=== PATIENT | female | born 1940 | race Caucasian/White ===

== ENCOUNTER 2021-02-07 12:41 | Observation (INO) ==
[2021-02-07] MEDS ORDERED: ACETAMINOPHEN 325 MG TABLET PO PRN (12:54)
[2021-02-07] MEDS ORDERED: DEXTROSE 50% 25 GM/50 ML VIAL IV PRN (12:54)
[2021-02-07] MEDS ORDERED: ONDANSETRON 4 MG/2 ML VIAL IV PRN (12:54)
[2021-02-07] MEDS ORDERED: GLUCAGON 1 MG VIAL IM PRN (12:54)
[2021-02-07] MEDS ORDERED: ENOXAPARIN 40 MG/0.4 ML SYRINGE SUBCUT SCH (14:00)
[2021-02-07] MEDS ORDERED: cefTRIAXone 1,000 MG in SODIUM CHLORIDE 0.9% 100 ML IV SCH (14:00)
[2021-02-07] MEDS ORDERED: INFLUENZA VIRUS VACCINE 0.5 ML SYRINGE IM ONE (14:35)
[2021-02-07 14:36] LABS: Basophils # 0.1 10*3/uL (0.0-0.2); Basophils % 0.7 % (0.0-0.8); Eosinophils # 0.2 10*3/uL (0.0-0.87); Hematocrit 38.5 VOL% (35.7-47.0); Hemoglobin 12.7 GM/DL (12.0-16.0); Immature Granulocytes % 0.4 %; Immature Granulocytes Absolute 0.04 #; Lymphocytes % 28.1 % (21.3-54.2); Mean Corpuscular Volume 90.8 FL (87-102); Mean Platelet Volume 9.3 FL (9.6-12.0); Monocytes % 8.1 % (1.7-12.7); Neutrophils % 60.7 % (38.7-73.9); Platelet Count 393 T/CUMM (130-400); Red Blood Count 4.24 MC/CUMM (3.8-5.5); Red Cell Distribution Width 12.4 % (9.3-17.3); White Blood Count 10.7 T/CUMM (4-12)
[2021-02-07 14:56] LABS: Albumin 3.6 G/DL (3.4-5.0); Bilirubin,Total 1.7 MG/DL (0.20-1.00); Calcium 9.3 MG/DL (8.5-10.1); Osmolality,Calculated 264.7 MOS/KG (273-304); Potassium 3.9 MMOL/L (3.5-5.1); Total Protein 7.7 G/DL (6.4-8.2)
[2021-02-07] MEDS: SODIUM CHLORIDE 0.45% 1,000 ML IV SCH ×2 (15:32→21:24)
[2021-02-07] MEDS: INSULIN LISPRO 100 UNIT/ML SUBCUT SCH ×2 (17:08→21:25)
[2021-02-07] MEDS: METOPROLOL TARTRATE 50 MG TABLET PO SCH (21:25)
[2021-02-08] MEDS: SODIUM CHLORIDE 0.45% 1,000 ML IV SCH ×2 (02:45→05:45)
[2021-02-08 05:36] LABS: Risk Ratio 4.88; VLDL Cholesterol 35.4 MG/DL
[2021-02-08] MEDS ORDERED: GLIMEPIRIDE 2 MG TABLET PO SCH (08:00)
[2021-02-08] MEDS ORDERED: PANTOPRAZOLE 40 MG TABLET PO SCH (09:00)
[2021-02-08] MEDS ORDERED: amLODIPine 5 MG TABLET PO SCH (09:00)
[2021-02-08] MEDS ORDERED: ASPIRIN EC 81 MG TABLET PO SCH (09:00)
[2021-02-08] MEDS ORDERED: FUROSEMIDE 20 MG TABLET PO SCH (09:00)
[2021-02-08] MEDS ORDERED: LOSARTAN 50 MG TABLET PO SCH (09:00)
[2021-02-08] MEDS: METOPROLOL TARTRATE 50 MG TABLET PO SCH (09:55)
[2021-02-08] MEDS: INSULIN LISPRO 100 UNIT/ML SUBCUT SCH ×2 (09:59→12:06)
[2021-02-08] MEDS ORDERED: traMADol 50 MG TABLET PO SCH (10:30)
[2021-02-08 12:35] VITALS: BP 114/58
== END 2021-02-08 13:13 | disposition hospice, home (50) ==
LOC: INTOOBSV 13:46 → N.TELEN 13:46
PROVIDERS: ADMIT Family Medicine; ATTEND Family Medicine